=== PATIENT | female | born 1965 | race Caucasian/White ===

== ENCOUNTER 2018-05-17 22:49 | Emergency (ER) | payer OTHER ==
[2018-05-17 23:18] VITALS: BP 120/75; PULSE 67; TEMP 98.6; BMI 24.7
--- NOTE | 2018-05-18 00:11 | PDOC ---
History of Present Illness - General Chief Complaint: Pain Stated Complaint: PAIN Time Seen by Provider: 05/17/18 23:56 - History of Present Illness Initial Comments: 05/18/18 00:06 CHIEF COMPLAINT: tooth pain HISTORY OF PRESENT ILLNESS: 53 yo F presents to ED with tooth pain since this morning. Patient is allergic to lidocaine and reports "itching" after getting lidocaine at the dentist. Patient has not seen dentist "in a long time." Patient states she has taken "both Advil and Motrin today and it hasn't helped. " Denies fever, chills, nausea, vomiting, diarrhea. PAST MEDICAL HISTORY: Denies past medical history FAMILY HISTORY: Denies SOCIAL HISTORY: Denies tobacco, alcohol, illicit drug use. SURGICAL HISTORY: Denies ALLERGIES: lidocaine REVIEW OF SYSTEMS General/Constitutional: Denies fever or chills. Denies weakness. HEENT: Pain to R upper tooth. Denies change in vision. Denies ear pain or discharge. Denies sore throat. Cardiovascular: Denies chest pain or shortness of breath. Respiratory: Denies cough, wheezing, or hemoptysis. Gastrointestinal: Denies nausea, vomiting, diarrhea or constipation. Denies rectal bleeding. Genitourinary: Denies dysuria, frequency, or change in urination. Musculoskeletal: Denies joint or muscle swelling or pain. Denies neck or back pain. Skin and breasts: Denies rash or easy bruising. Neurologic: Denies headache, vertigo, loss of consciousness, or loss of sensation. PHYSICAL EXAM General Appearance: Well-appearing, appropriately dressed. No apparent distress. HEENT: Poor dentition, missing 2nd superior molar. Dental caries appreciated, no abscess. EOMI, PERRLA, normal voice, TMs normal, pharynx normal. No conjunctival pallor. No photophobia, scleral icterus. Respiratory/Chest: Lungs CTAB. Cardiovascular: RRR. S1, S2. Gastrointestinal/Abdominal: Normal bowel sounds. Abdomen soft, non-distended. No tenderness or rebound tenderness. No organomegaly, pulsatile mass, guarding , hernia, hepatomegaly, splenomegaly. Musculoskeletal/Extremities: Normal inspection. FROM of all extremities, normal capillary refill. Pelvis Stable. No CVA tenderness. No tenderness to extremities, pedal edema, swelling, erythema or deformity. Integumentary: Appropriate color, dry, warm. 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 Fully oriented, alert. Appropriate mood/affect. Motor strength 5/5. No appreciable EOM palsy, facial droop or sensory deficit. Past History - Past Medical History Allergies/Adverse Reactions: Allergies Allergy/AdvReac Type Severity Reaction Status Date / Time No Known Allergies Allergy Verified 05/18/18 01:14 Home Medications: Ambulatory Orders Acetaminophen W/ Codeine #3 [Tylenol # 3 -] 1 tab PO Q8H PRN #12 tablet [facility]D 3 Amoxicillin - [Amoxicillin 500mg Capsule -] 500 mg PO BID #14 capsule 05/18/18 Asthma: Yes COPD: No - Suicide/Smoking/Psychosocial Hx Smoking History: Current every day smoker Have you smoked in the past 12 months: Yes Number of Cigarettes Smoked Daily: 10 Information on smoking cessation initiated: No Hx Alcohol Use: No Drug/Substance Use Hx: No Substance Use Type: None *Physical Exam - Vital Signs Last Vital Signs Temp Pulse Resp BP Pulse Ox 98.6 F 67 18 120/75 100 05/17/18 23:14 05/17/18 23:14 05/17/18 23:14 05/17/18 23:14 05/17/18 23:14 Medical Decision Making - Medical Decision Making 05/18/18 01:38 53 yo F presents to ED with tooth pain since this morning Tylenol po Tylenol #3 and amox rx sent to pharm. *DC/Admit/Observation/Transfer Diagnosis at time of Disposition: Tooth pain - Discharge Dispostion Disposition: HOME Condition at time of disposition: Stable Decision to Admit order: No - Prescriptions Prescriptions: Acetaminophen W/ Codeine #3 [Tylenol # 3 -] 1 tab PO Q8H PRN #12 tablet MDD 3 PRN Reason: Oral Pain/Mouth Sores Amoxicillin - [Amoxicillin 500mg Capsule -] 500 mg PO BID #14 capsule - Referrals Referrals: Bishnu Fernández DDS [Staff Physician] - - Patient Instructions Printed Discharge Instructions: DI for Dental Pain Additional Instructions: Please take medications as prescribed and complete the entire course of antibiotics, even if symptoms improve. If you develop severe pain, fever, vomiting, diarrhea, or any new or worsening symptoms, please return to the ER. - Post Discharge Activity
--- NOTE | 2018-05-18 00:17 | PDOC ---
*Physical Exam - Vital Signs Last Vital Signs Temp Pulse Resp BP Pulse Ox 98.6 F 67 18 120/75 100 05/17/18 23:14 05/17/18 23:14 05/17/18 23:14 05/17/18 23:14 05/17/18 23:14 Medical Decision Making - Medical Decision Making 05/18/18 00:17 agree with care from CHELE Grider *DC/Admit/Observation/Transfer Diagnosis at time of Disposition: Tooth pain - Discharge Dispostion Disposition: HOME Condition at time of disposition: Stable - Prescriptions Prescriptions: Acetaminophen W/ Codeine #3 [Tylenol # 3 -] 1 tab PO Q8H PRN #12 tablet MDD 3 PRN Reason: Oral Pain/Mouth Sores Amoxicillin - [Amoxicillin 500mg Capsule -] 500 mg PO BID #14 capsule - Referrals Referrals: Bishnu Fernández DDS [Staff Physician] - - Patient Instructions Printed Discharge Instructions: DI for Dental Pain Additional Instructions: Please take medications as prescribed and complete the entire course of antibiotics, even if symptoms improve. If you develop severe pain, fever, vomiting, diarrhea, or any new or worsening symptoms, please return to the ER. - Post Discharge Activity
[2018-05-18] MEDS ORDERED: ACETAMINOPHEN 500 MG TABLET (FP) PO ONE (01:05)
[2018-05-18] MEDS ORDERED: ACETAMINOPHEN 325 MG TABLET (FP) ONE (01:07)
== END 2018-05-18 01:14 | disposition home or self-care (01) ==
LOC: JER 22:49
DX: K02.9 Dental caries, unspecified (principal)
CPT/HCPCS: 99281-25

== ENCOUNTER 2019-05-16 14:42 | Emergency (ER) | payer OTHER ==
[2019-05-16 14:56] VITALS: BP 131/78; PULSE 71; TEMP 98.4; BMI 27.3
--- NOTE | 2019-05-16 14:57 | PDOC ---
Rapid Medical Evaluation Chief Complaint: Pain Time Seen by Provider: 05/16/19 14:53 Medical Evaluation: Allergies Allergy/AdvReac Type Severity Reaction Status Date / Time No Known Allergies Allergy Verified 05/18/18 01:14 05/16/19 14:54 I have performed a brief in-person evaluation of this patient. The patient presents with a chief complaint of: abd pain with intermittant vag bleeding/ Cramping- LMP April 03- cont reg menses Pertinent physical exam findings: abd soft/ nt/ 5 + preg tests I have ordered the following: UA/ UCG The patient will proceed to the ED for further evaluation. 05/16/19 14:57 Discharge Disposition - Diagnosis Abdominal pain - Referrals - Patient Instructions - Post Discharge Activity
--- NOTE | 2019-05-16 16:34 | PDOC ---
History of Present Illness - General Chief Complaint: Pain Stated Complaint: ABD PAIN Time Seen by Provider: 05/16/19 14:53 History Source: Patient - History of Present Illness Initial Comments: 05/16/19 16:27 Pt is a 54y/o F with no hx of past ectopic presenting to the ED with abdominal pain.The pain began yesterday in her left lower abdomen. She describes it as pressure like non-radiating pain exacerbated by movement and improved with Advil/lying down. She gets her periods regularly and is late for this month.She has vomited x1 since yesterday but denies any nausea at this time. She denies any fevers, chills, hematuria,dysuria, vaginal bleeding/ spotting, bloody stools, diarrhea, constipation. Past History - Past Medical History Allergies/Adverse Reactions: Allergies Allergy/AdvReac Type Severity Reaction Status Date / Time No Known Allergies Allergy Verified 05/16/19 14:55 Home Medications: Ambulatory Orders Acetaminophen W/ Codeine #3 [Tylenol # 3 -] 1 tab PO Q8H PRN #12 tablet [facility] 3 Amoxicillin - [Amoxicillin 500mg Capsule -] 500 mg PO BID #14 capsule 05/18/18 Amoxicillin - [Amoxicillin 500mg Capsule -] 500 mg PO BID #14 capsule 05/18/18 Acetaminophen W/ Codeine #3 [Tylenol # 3 -] 1 tab PO TID PRN #12 tablet [facility] 3 Amoxicillin - [Amoxicillin 500mg Capsule -] 500 mg PO BID #14 capsule 05/19/18 Asthma: Yes COPD: No - Suicide/Smoking/Psychosocial Hx Smoking History: Never smoked Have you smoked in the past 12 months: Yes Number of Cigarettes Smoked Daily: 10 Information on smoking cessation initiated: No Hx Alcohol Use: No Drug/Substance Use Hx: No Substance Use Type: None *Physical Exam - Vital Signs Last Vital Signs Temp Pulse Resp BP Pulse Ox 98.4 F 71 19 131/78 100 05/16/19 14:53 05/16/19 14:53 05/16/19 14:53 05/16/19 14:53 05/16/19 14:53 - Physical Exam General Appearance: Yes: Nourished, Appropriately Dressed. No: Apparent Distress HEENT: positive: Normal Voice, Symmetrical Neck: positive: Trachea midline, Supple Respiratory/Chest: positive: Normal Breath Sounds. negative: Chest Tender, Lungs Clear, Respiratory Distress, Accessory Muscle Use, Labored Respiration, Crackles, Rales, Wheezing Cardiovascular: positive: Regular Rhythm, Regular Rate, S1, S2. negative: Edema , JVD Gastrointestinal/Abdominal: positive: Normal Bowel Sounds, Soft, Other ( tenderness in the left lower quandrant.). negative: Pulsatile Mass, Protuberent , Distended, Guarding, Rebound Musculoskeletal: negative: CVA Tenderness Extremity: positive: Normal Inspection, Normal Range of Motion. negative: Swelling Integumentary: positive: Normal Color, Dry, Warm Neurologic: positive: Fully Oriented, Alert, Normal Mood/Affect, Normal Response ED Treatment Course - LABORATORY CBC & Chemistry Diagram: 05/16/19 16:00 05/16/19 16:00 - RADIOLOGY Radiology Studies Ordered: Category Date Time Status TRANSVAGINAL ULTRASOUND US [US] Stat Ultrasound 05/16/19 16:05 Ordered Medical Decision Making - Medical Decision Making 54y/o F with no hx of past ectopic presenting to the ED with abdominal pain 05/16/19 18:13 quant HCG is 4.4 which is the non- range. 05/16/19 18:49 TVUS Intramural uterine focia representing leiomyomas. uterus appears mildly prominent no free intraperitoneal fluid ovaries could not be visualzied secondary to obscuring bowel gas 05/16/19 20:34 pt. was informed she has fibroids *DC/Admit/Observation/Transfer Diagnosis at time of Disposition: Fibroids Abdominal pain Qualifiers: Abdominal location: lower abdomen, unspecified Qualified Code(s): R10.30 - Lower abdominal pain, unspecified - Discharge Dispostion Disposition: HOME Condition at time of disposition: Guarded Decision to Admit order: No - Referrals - Patient Instructions Printed Discharge Instructions: DI for Uterine Fibroids, DI for Prescription Opioid Use Additional Instructions: You were seen in the ER for abdominal pain. Fibroids were found on your ultrasound. Follow up with your PCP and your Key Account Executive for evaluation of your fibroids. - Post Discharge Activity
[2019-05-16 17:21] LABS: ALBUMIN 4.5 g/dl (3.4-5.0); BILIRUBIN,TOTAL 0.6 mg/dL (0.2-1); BLOOD UREA NITROGEN 9.4 mg/dL (7-18); CALCIUM 9.4 mg/dL (8.5-10.1); CREATININE 0.8 mg/dL (0.55-1.3); POTASSIUM 3.9 mmol/L (3.5-5.1); TOT PROT 7.5 g/dl (6.4-8.2)
--- NOTE | 2019-05-16 17:44 | PDOC ---
Documentation entered by Lulu Joseph SCRIBE, acting as scribe for Jami Campos MD. Jami Campos MD: This documentation has been prepared by the Opal murillo Brenda, SCRIBE, under my direction and personally reviewed by me in its entirety. I confirm that the documentation accurately reflects all work, treatment, procedures, and medical decision making performed by me. Attending Attestation - Resident Resident Name: Teagan Belcher - ED Attending Attestation I have performed the following: I have examined & evaluated the patient, The case was reviewed & discussed with the resident, I agree w/resident's findings & plan, Exceptions are as noted - HPI HPI: 05/16/19 17:34 Ms David is a 54 yo F presenting to the ER with concern for Pt has a h/o ectopic . Pt reports pain in her LLQ - described as pressure like non-radiating, worse with movement and has noted intermittent spotting She has taken multiple tests which have been positive which prompted her concern 05/16/19 17:42 05/16/19 17:43 - Physicial Exam PE: 05/16/19 17:38 GENERAL: The patient is in no acute distress. ENT: Ears normal, nares patent, oropharynx clear without exudates. Moist mucous membranes. NECK: Normal range of motion, supple LUNGS: Breath sounds equal, clear to auscultation bilaterally HEART:Regular rate and rhythm, normal S1 and S2 without murmur, rub or gallop. ABDOMEN: Soft, left lower abdominal tenderness to palpation, no involuntary guarding or rebound EXTREMITIES: Normal range of motion NEUROLOGICAL: Cranial nerves II through XII grossly intact. Normal speech. No focal neurological deficits. SKIN: Warm, Dry, normal turgor, no rashes or lesions noted. 05/17/19 19:29 - Medical Decision Making 05/16/19 17:42 54 yo F presenting to the ER with a complaint of abdominal pain and concern about Laboratory Tests 05/16/19 16:00 BUN 9.4 Creatinine 0.8 Beta HCG, Quant 4.4 Awaiting US 05/16/19 17:42
[2019-05-16 19:40] LABS: EPI CELLS 1.2 /HPF (0-5/HPF); HYALINE CASTS 0 /lpf (0-8); URINE APPEARANCE CLEAR; URINE BACTERIA 10.7 /hpf (NEGATIVE); URINE BILIRUBIN NEGATIVE (NEGATIVE); URINE COLOR YELLOW; URINE GLUCOSE (UA) NEGATIVE (NEGATIVE); URINE KETONE NEGATIVE (NEGATIVE); URINE LEUK ESTERASE NEGATIVE (NEGATIVE); URINE NITRITE NEGATIVE (NEGATIVE); URINE PROTEIN NEGATIVE (NEGATIVE); URINE RBC 4 /hpf (0-4); URINE UROBILINOGEN 0.2 mg/dL (0.2-1.0); URINE WBC 1 /hpf (0-5)
[2019-05-16 20:18] LABS: BASO % 0.7 % (0-2.0); EOS % 0.9 % (0-4.5); HEMATOCRIT 45.5 % (32.4-45.2); HEMOGLOBIN 15.6 GM/dL (10.7-15.3); LYMPH % 28.3 % (8-40); MCHC 34.3 g/dl (32.0-36.0); MEAN PLT VOLUME 9.9 fl (7.5-11.1); MONO % 5.8 % (3.8-10.2); NEUT % 64.3 % (42.8-82.8); PLATELET COUNT 248 K/MM3 (134-434); RDW 13.1 % (11.6-15.6); WHITE BLOOD COUNT 7.6 K/mm3 (4.0-10.0)
== END 2019-05-16 19:00 | disposition home or self-care (01) ==
LOC: JER 14:42
DX: D25.9 Leiomyoma of uterus, unspecified (principal)
CPT/HCPCS: 36415; 76830-TC; 80053; 81003; 84702; 85025; 99282-25

== ENCOUNTER 2024-03-12 11:24 | Emergency (ER) | payer OTHER ==
[2024-03-12 11:31] VITALS: BP 102/59; PULSE 90; RESP 18; TEMP 98.6; BMI 22.6
== END 2024-03-12 12:11 | disposition home or self-care (01) ==
LOC: JERFT 11:24
DX: H66.91 Otitis media, unspecified, right ear (principal); H92.01 Otalgia, right ear; J34.9 Unspecified disorder of nose and nasal sinuses
CPT/HCPCS: 99283-25

== ENCOUNTER 2024-04-04 10:40 | Emergency (ER) | payer OTHER ==
[2024-04-04 10:46] VITALS: BP 135/87; PULSE 77; RESP 18; TEMP 98.4; BMI 22.6
[2024-04-04 11:54] LABS: BASO % 0.4 % (0-2.0); EOS % 3.4 % (0-4.5); HEMATOCRIT 38.8 % (32.4-45.2); LYMPH % 28.6 % (8-40); MCH 31.4 pg (25.7-33.7); MCHC 33.6 g/dl (32.0-36.0); MEAN CELL VOLUME 93.6 fl (80-96); MEAN PLT VOLUME 9.1 fl (7.5-11.1); MONO % 10.9 % (3.8-10.2); NEUT % 56.7 % (42.8-82.8); PLATELET COUNT 180 10^3/uL (134-434); RBC 4.14 M/mm3 (3.60-5.2); RDW 12.4 % (11.6-15.6); WHITE BLOOD COUNT 5.4 K/mm3 (4.0-10.0)
[2024-04-04 12:10] LABS: POTASSIUM 4.5 mmol/L (3.5-5.1)
[2024-04-04 12:12] LABS: CALCIUM 9.7 mg/dL (8.5-10.1)
[2024-04-04 12:13] LABS: ALBUMIN 3.3 g/dl (3.4-5.0); BLOOD UREA NITROGEN 11.5 mg/dL (7-18)
[2024-04-04 12:16] LABS: CREATININE 0.4 mg/dL (0.55-1.3)
[2024-04-04 12:18] LABS: BILIRUBIN,TOTAL 0.4 mg/dL (0.2-1)
== END 2024-04-04 12:49 | disposition home or self-care (01) ==
LOC: JER 10:40
DX: R60.0 Localized edema (principal)
CPT/HCPCS: 36415; 80053; 85025; 93005; 93010; 99284-25